=== PATIENT | male | born 1950 | race Hispanic/Latino ===

== ENCOUNTER 2021-12-18 10:23 | Emergency (ER) | payer MEDICARE ==
[~2021-12-18] VITALS: Ht 185.4 cm; Wt 102.1 kg
[~2021-12-18 10:23] MED LIST: DAILY VITAMIN1 EAC3 PO; FISH OIL 1,0001 EAC2 PO; NAPROXEN250 MG PO
[2021-12-18] MEDS ORDERED: CYCLOBENZAPRINE5 MG PO (11:15)
== END 2021-12-18 11:31 | disposition home or self-care (01) ==
LOC: ER 10:25
DX: M25.562 Pain in left knee (principal); M25.561 Pain in right knee; M79.18 Myalgia, other site; Z85.05 Personal history of malignant neoplasm of liver
CPT/HCPCS: 99283